=== PATIENT | female | born 1990 | race Two or more races ===

== ENCOUNTER 2018-06-08 10:19 | Emergency (ER) | payer SELFPAY ==
[2018-06-08] MEDS ORDERED: TDAP ADULT 0.5 ML INJ (BOOSTRIX) IM ONE (11:07)
--- NOTE | 2018-06-08 11:07 | EDPHY ---
General - History Smoking Status: Never smoked Time Seen by Provider: 06/08/18 10:56 Narrative: CHIEF COMPLAINT: Lip laceration HISTORY OF PRESENT ILLNESS: Patient presents by private vehicle with complaints of lip laceration. She says that she accidentally hit herself in the face with a metal broom handle around 9:30 a.m. This morning. No loss of conscious. No headache. Her only complaint is the laceration of the right lower lip. It did bleed heavily that stopped with pressure. She has no difficulty opening or closing her mouth. No dental pain. No malocclusion of the teeth. Minimally painful. Her tetanus is questionable status. No other associated complaints or modifying factors TIME OF INJURY: 9:30 a.m. Today TETANUS STATUS: Questionable MEDICAL/SURGICAL/SOCIAL HISTORY: None REVIEW OF SYSTEMS: Ten systems reviewed and are negative unless otherwise noted in the HPI EXAMINATION General Appearance: Alert, no distress Head: normocephalic, atraumatic ENT: Airway is widely patent. There is no trauma to the teeth, alveolar ridge or mandibular ridge. There is a laceration to the right lower lip involving the vermilion border, 2 cm in length. This was partial-thickness without communication to the labial mucosa. No foreign body. No pulsatile bleeding. No exposure of the orbicularis muscle Cardiovascular: Pulses normal throughout. Brisk cap refill Neurological: A&O, sensory symmetric, strength symmetric Skin: Warm and dry, no rash. Lip laceration as above. Extremities: Nontender, no pedal edema DIFFERENTIAL DIAGNOSES: Including but not limited to laceration, complex laceration, laceration with communication to mucosa, laceration foreign body MDM: 10:55 a.m. Complicated laceration of the right lower lip that does involve the vermilion border 11:25 a.m. Lip laceration of the right lower lip that did involve the vermilion border. There was excellent approximation of the wound borders with perfect alignment of the vermilion border. We discussed wound care. We discussed ice. We discussed returning here in 5-7 days for suture removal. We discuss ED precautions signs of infection. She is well-appearing. Her Tdap was administered here. She is discharged home stable condition. PROCEDURE: Laceration repair Consent: Verbal Location: Right lower lip involving the vermilion border Length of repair: 2.0 cm Complexity: Complex due to vermilion border involvement Layer involvement: Single Anesthesia: Local. 0.5% Marcaine without epinephrine. 5 mL Irrigation: Extensive Debridement: No debridement Procedure description: Following good anesthesia, the wound was copiously irrigated. Wound bed was explored with a sterile glove, and there is no foreign body noted. No involvement of the orbicularis muscle. The 1st stitch was placed taking care to appropriately align the vermilion border. Wound borders were approximated well with good hemostasis. Tolerated well without complication. Suture/Staple material: 6-0 Prolene, 3 simple ruptured sutures. Wound care: Routine as discussed Suture/Staple removal: 5-7 Days SUPERVISION: This patient was independently evaluated without direct involvement of or examination by the attending physician. ED Precautions: Worsening pain. Erythema, edema, cyanosis, pallor, paresthesia or anesthesia. (Nash Velasquez) Discussion: The patient was evaluated and managed by the Physician Financial Report Service Sales Agent. My co- signature indicates that I have reviewed this chart and I agree with the findings and plan of care as documented. I am the secondary supervising physician. (Radha Humphrey) - Objective Vital Signs: Initial Vital Signs Temperature (C) 36.8 C 06/08/18 10:23 Heart Rate 68 06/08/18 10:23 Respiratory Rate 16 06/08/18 10:23 Blood Pressure 124/70 H 06/08/18 10:23 O2 Sat (%) 95 06/08/18 10:23 O2 Delivery Mode Room Air Allergies/Adverse Reactions: No Known Allergies Allergy (Unverified 06/08/18 10:27) Home Medications: Medication Instructions Recorded NK [No Known Home Meds] 06/08/18 Medications Given: Discontinued Medications Diphtheria/Tetanus/Acell Pertussis (Boostrix) 0.5 ml IM .ONCE ONE Stop: 06/08/18 11:08 Last Admin: 06/08/18 11:12 Dose: 0.5 ml Departure - Departure Disposition: Home, Routine, Self-Care Clinical Impression: Laceration of vermilion border of lower lip Qualifiers: Encounter type: initial encounter Qualified Code(s): S01.511A - Laceration without foreign body of lip, initial encounter Condition: Good Instructions: Care For Your Stitches (ED), Laceration (ED) Additional Instructions: 1. Thin layer of bacitracin once daily for the next 2 days 2. Keep the wound covered while showering for the next 3 days 3. Daily wound care as discussed 4. Return here for suture removal in 7 days 5. Return here for signs of infection as discussed including warmth, redness, fever, drainage from the site 6. return here for increasing pain surrounding the laceration 7. Do not submerge the wound in any water, hot tub, swimming pool until sutures removed Referrals: Fior Magana MD [Primary Care Provider] - As per Instructions Physician,Emergency DeptMD [Medical Doctor] - As per Instructions (5-7 days for suture removed) Stand Alone Forms: Work Comp Follow Up, Work Excuse
[2018-06-08 11:43] VITALS: BP 118/69
== END 2018-06-08 11:43 | disposition home or self-care (01) ==
PROC: 0CQ1XZZ Repair Lower Lip, External Approach (ICD-10-PCS; principal; 2018-06-08)
DX: S01.511A Laceration without foreign body of lip, initial encounter (principal); W22.8XXA Striking against or struck by other objects, initial encounter; Y92.9 Unspecified place or not applicable; Z23 Encounter for immunization